=== PATIENT | female | born 1950 | race Caucasian/White ===

== ENCOUNTER 2018-02-06 11:12 | Emergency (ER) | payer OTHER ==
[~2018-02-06] VITALS: Ht 162.6 cm; Wt 91.0 kg
[2018-02-06 11:14] VITALS: TEMP 36.9; Ht 162.6 cm; Wt 91.0 kg
[2018-02-06] MEDS ORDERED: ONDANSETRON INJ 2 MG/ML 2 ML VIAL IV STA (11:31)
[2018-02-06] MEDS ORDERED: KETOROLAC TROMETHAMINE 30 MG/ML VIAL IV STA (11:31)
[2018-02-06 12:15] LABS: BASO % 0.5 %; BASO ABS # 0.03 K/uL (0-0.2); EOS % 3.9 %; EOS ABS # 0.25 K/uL (0-0.5); HEMATOCRIT 39.3 % (37-47); HEMOGLOBIN 13.3 g/dL (12.0-16.0); IG# 0.03 K/uL (0.00-0.02); LYMPH % 43.8 %; LYMPH ABS # 2.81 K/uL (1.2-3.4); MEAN CELL VOLUME 87.5 fL (80-100); MEAN CORPUSCULAR HEMOGLOBIN 29.6 pg (25-34); MEAN CORPUSCULAR HGB CONC 33.8 g/dl (32-36); MEAN PLATELET VOLUME 10.1 fL (7.4-10.4); MONO % 7.2 %; MONO ABS # 0.46 K/uL (0.11-0.59); NEUT % 44.1 %; NEUT ABS # 2.83 K/uL (1.4-6.5); PLATELET COUNT 268 K/uL (130-400); RED CELL DISTRIBUTION WIDTH CV 14.6 % (11.5-14.5); RED CELL DISTRIBUTION WIDTH SD 47.2 fL (36.4-46.3); WHITE BLOOD COUNT 6.41 K/uL (4.8-10.8)
--- NOTE | 2018-02-06 12:19 | EMERGENCY ROOM VISIT NOTE ---
ED Visit Note First contact with patient: 11:18 I have seen and examined this patient with Evonne Moe and generally agree with the treatment plan as discussed.
[2018-02-06] MEDS ORDERED: DVN/160 PO (12:23)
[2018-02-06] MEDS ORDERED: DICY10CA55 PO (12:23)
[2018-02-06] MEDS ORDERED: CITA20TA9 PO (12:23)
[2018-02-06] MEDS ORDERED: CHOL20007 PO (12:23)
[2018-02-06] MEDS ORDERED: PANT40TA PO (12:23)
[2018-02-06] MEDS ORDERED: VITA400C3 PO (12:23)
[2018-02-06] MEDS ORDERED: OMEG-76 PO (12:23)
[2018-02-06] MEDS ORDERED: METO50TA8 PO (12:23)
[2018-02-06] MEDS ORDERED: CETI10TA84 PO (12:23)
[2018-02-06] MEDS ORDERED: [UNRECOGNIZED DRUG - OTHER] PO (12:29)
[2018-02-06 12:33] LABS: ALBUMIN 3.9 gm/dl (3.4-5.0); CALCIUM 9.1 mg/dl (8.5-10.1); CREATININE 0.96 mg/dl (0.60-1.20)
[2018-02-06] MEDS ORDERED: POTA1080 PO (12:34)
[2018-02-06 12:36] LABS: TOTAL PROTEIN 7.9 gm/dl (6.4-8.2)
--- NOTE | 2018-02-06 13:18 | DIAGNOSTIC IMAGING REPORT ---
GALLBLADDER-ABD LIMITED HISTORY: 67 years-old Female Right upper quadrant pain acute right upper quadrant abdominal pain COMPARISON: None available TECHNIQUE: Multiple real-time sonographic images of the abdominal right upper quadrant were obtained assessing grayscale appearance and color flow FINDINGS: Pancreas appears unremarkable. There is increased echogenicity of the liver suggesting fatty infiltration. Tiny hypoechoic lesions about the liver are seen measuring up to 1.0 cm suggesting cysts. There is a focal 1.2 cm hyperechoic lesion of the liver near the falciform ligament seen on image 33 within the left hepatic lobe. No intrahepatic biliary ductal dilation. Gallbladder appears unremarkable without cholelithiasis, wall thickening or pericholecystic fluid. Common bile duct is normal, 4 mm. Hypoechoic lesions of the right kidney measuring up to 1.4 cm suggests cyst. No definite shadowing calculi of the right kidney identified. No tiffanie hydronephrosis. IMPRESSION: 1. Hepatic steatosis with hepatic cysts. 1.2 cm hyperechoic lesion of the left hepatic lobe is indeterminate, however may reflect a hepatic meningioma. 2. No cholelithiasis or sonographic evidence of acute cholecystitis. 3. No biliary ductal dilation. The above report was generated using voice recognition software. It may contain grammatical, syntax or spelling errors. Electronically signed by: Sanket Abdalla M.D. 02/06/2018 1:17 PM Dictated Date/Time: 02/06/2018 1:14 PM
[2018-02-06] MEDS ORDERED: CYCL10TA6 PO (13:40)
[2018-02-06] MEDS ORDERED: HYDR-5688 PO (13:40)
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
[2018-02-06 14:07] VITALS: BP 127/73; PULSE 64; O2SAT 97
== END 2018-02-06 14:07 | disposition home or self-care (01) ==
LOC: C.EDB 11:14
DX: R10.11 Right upper quadrant pain (principal); S39.012A Strain of muscle, fascia and tendon of lower back, initial encounter; X58.XXXA Exposure to other specified factors, initial encounter; R30.0 Dysuria; I10 Essential (primary) hypertension; Z87.442 Personal history of urinary calculi

== ENCOUNTER → 2018-04-19 | Day surgery (SDC) | payer OTHER ==
[2018-04-07 11:07] VITALS: BMI 34.0
--- NOTE | 2018-04-07 11:36 | PAT Medication Instructions ---
Service Date April 07, 2018. Current Home Medication List Cetirizine (Zyrtec), 10 MG PO QAM Cholecalciferol (Vitamin D3), 2,000 UNITS PO QAM Citalopram Hydrobromide (Celexa), 30 MG PO QAM Dicyclomine Hcl (Bentyl), 10 MG PO QID PRN for GI Upset Metoprolol Succ (Toprol Xl) (Toprol-Xl), 50 MG PO QPM Heidrick-3 Fatty Acids (Heidrick 3 500 500 mg), 500 MG PO BID Pantoprazole (Protonix), 40 MG PO QAM Valsartan (Diovan), 160 MG PO QAM Vitamin E (Alph-E), 400 UNITS PO QAM [Doterra], 1 TAB PO BID Medication Instructions For Your Scheduled Surgery - Hold the following medications starting today: Heidrick-3 Fatty Acids (Heidrick 3 500 500 mg), 500 MG PO BID Vitamin E (Alph-E), 400 UNITS PO QAM [Doterra], 1 TAB PO BID - Hold the following medications the morning of surgery: Cetirizine (Zyrtec), 10 MG PO QAM Cholecalciferol (Vitamin D3), 2,000 UNITS PO QAM Dicyclomine Hcl (Bentyl), 10 MG PO QID PRN for GI Upset Valsartan (Diovan), 160 MG PO QAM - Take the following medications the morning of surgery with a sip of water: Citalopram Hydrobromide (Celexa), 30 MG PO QAM Pantoprazole (Protonix), 40 MG PO QAM - Take the following medications as scheduled the night before surgery: Dicyclomine Hcl (Bentyl), 10 MG PO QID PRN for GI Upset (if needed) Metoprolol Succ (Toprol Xl) (Toprol-Xl), 50 MG PO QPM If you have any questions please call us at [phone] or [phone] or [phone]
[~2018-04-19] VITALS: Ht 162.6 cm; Wt 91.8 kg
[~2018-04-19] MED LIST: ACET-1311 PO; ATROPINE SULFATE 0.1 MG/ML 5ML SYR IV PRN; BUPIVACAINE 0.5 % 5 MG/1 ML PF 10ML VIAL ONE; CEFAZOLIN 2000MG IV PUSH 15 ML IV SCH; CEFAZOLIN SOD 1 GM VIAL ONE; CETI10TA84 PO; CHOL20007 PO; CISATRACURIUM BESYLATE IV SOLN 2 MG/ML 10 ML VIAL ONE; CITA20TA9 PO; DEXAMETHASONE SOD INJ 4 MG/ML VIAL ONE; DICY10CA55 PO; DOTERRA PO; DVN/160 PO; EpHEDrine SULFATE INJ 50 MG/ML AMP IV PRN; FENTANYL CITRATE INJ 50 MCG/1 ML 2 ML VIAL IV PRN; FENTANYL CITRATE INJ 50 MCG/1 ML 2 ML VIAL ONE; FLUMAZENIL 0.1 MG/1 ML 10 ML VIAL IV PRN; GLYCOPYRROLATE INJ 0.2 MG/ML VIAL ONE; HEPARIN SOD (PORCINE) 1000 UNIT/ML 10 ML VIAL ONE; LABETALOL HCL IV 5 MG/ML 20ML IV PRN; LACTATED RINGER'S 1000ML 1,000 ML IV SCH; LIDOCAINE HCL 2% 2 ML VIAL (20MG/ML) ONE; METO50TA8 PO; MIDAZOLAM HCL 1 MG/ML 2ML VIAL ONE; MoRPHine SULFATE 4 MG/ML 1 ML CARP\\VIAL IV PRN; NALOXONE HCL 0.4 MG/1 ML VIAL/CARP IV PRN; NEOSTIGMINE METHYLSULFATE 5 MG/5 ML SYR ONE; OMEG-76 PO; ONDANSETRON INJ 2 MG/ML 2 ML VIAL IV PRN; ONDANSETRON INJ 2 MG/ML 2 ML VIAL ONE; OXYCODONE/ACETAMINOPHEN 5-325 TAB PO PRN; PANT40TA PO; PROMETHAZINE HCL INJ 12.5 MG in SODIUM CHLORIDE 0.9% 50ML 50 ML IV PRN; PROPOFOL IV EMULSION 10 MG/ML 20 ML VIAL ONE; SCOPOLAMINE 1.5 MG TDSY TD ONE; SODIUM CHLORIDE 0.9% 1000ML 1,000 ML IV SCH; VITA400C28 PO
[2018-04-19 08:10] VITALS: BP 113/73; PULSE 69; TEMP 37.1; O2SAT 94; Ht 162.6 cm; Wt 91.8 kg
--- NOTE | 2018-04-19 10:58 | History & Physical Bridge Note ---
H&P Re-Evaluation Bridge Note: I have examined the patient, reviewed the History & Physical and in the interval since the performance of the History & Physical I have noted the following changes of clinical significance: No changes noted
--- NOTE | 2018-04-19 12:57 | [facility] Post Operative Brief Note ---
Immediate Operative Summary Operative Date April 19, 2018. Pre-Operative Diagnosis Dyskenesia of gallbladder Post-Operative Diagnosis Same Procedure(s) Performed Laparoscopic cholecystectomy Surgeon Dr Sagastume Well Service Floorperson Surgeon(s) none Estimated Blood Loss 5ml Findings Consistent with Post-Op Diagnosis Specimens A. Gallbladder Drains None Anesthesia Type General Complication(s) none
--- NOTE | 2018-04-19 12:59 | Discharge Instructions ---
Discharge Instructions Date of Service April 19, 2018. Admission Reason for Admission: Gallbladder Disease Discharge Discharge Diagnosis / Problem: Same Discharge Goals Goal(s): Decrease discomfort Activity Recommendations Activity Limitations: per Instructions/Follow-up section Lifting Limitations: no more than 10 pounds (for 6 weeks) Shower/Bathe: tomorrow (shower only) . Instructions / Follow-Up Instructions / Follow-Up Post-Surgical ~ Discharge Instructions Activity Recommendations: - lifting limitation: (10 pounds for 2 weeks), - exercise/sex/sports limit: (nonstrenuous for 2 weeks), - driving or machine use limit: (none for 1 week), - Shower/bathe limit: (may shower beginning tomorrow) Diet: - Resume previous diet SPECIAL CARE INSTRUCTIONS: - May shower in 24 hours. Let water run over area and pat dry. - Leave steri strips on for one week. - Call the surgeon's office with any questions or concerns - - (ex. temperature higher than 101 degrees F, excessive bleeding or pain). MEDICATIONS: - Resume previous medications unless instructed otherwise by your surgeon. - Ibuprofen 600 mg every 6 hours with food - Percocet 1 every 4 hours, as needed for pain FOLLOW UP VISIT: - If not already scheduled, please call the office to schedule a two week follow-up appointment. Office number Current Hospital Diet Patient's current hospital diet: Discharge Diet Recommended Diet: Regular Diet Procedures Procedures Performed: Laparoscopic cholecystectomy Pending Studies Studies pending at discharge: yes List of pending studies: Pathology Medical Emergencies . Who to Call and When: Medical Emergencies: If at any time you feel your situation is an emergency, please call 911 immediately. . Non-Emergent Contact Non-Emergency issues call your: Primary Care Provider, Surgeon Call Non-Emergent contact if: your pain is worsening, wound has increased redness, wound has increased pain . "Provider Documentation" section prepared by Gianfranco Sagastume. .
--- NOTE | 2018-04-19 13:44 | Anesthesiology Progress Note ---
Anesthesia Post Op Note Date & Time April 19, 2018 at 13:44 Vital Signs Pain Intensity: 5 Vital Signs Past 12 Hours Date Time Temp Pulse Resp B/P (MAP) Pulse Ox O2 Delivery O2 Flow Rate FiO2 04/19/18 13:35 36.8 97 Nasal Cannula 2 04/19/18 13:32 68 14 95 04/19/18 13:32 69 14 04/19/18 13:31 103/67 04/19/18 13:27 74 12 04/19/18 13:27 74 12 92 04/19/18 13:26 110/67 04/19/18 13:22 72 18 99 04/19/18 13:22 72 18 04/19/18 13:21 125/73 04/19/18 13:20 70 16 99 04/19/18 13:20 70 16 04/19/18 13:16 115/73 04/19/18 13:15 70 18 04/19/18 13:15 68 18 100 04/19/18 13:11 122/75 04/19/18 13:10 74 16 04/19/18 13:10 74 16 100 04/19/18 13:09 72 17 99 04/19/18 13:09 71 17 04/19/18 13:06 124/77 04/19/18 13:04 73 17 98 04/19/18 13:04 73 17 04/19/18 13:01 128/76 04/19/18 13:00 128/84 04/19/18 12:59 36.7 99 16 128/84 99 Oxymask 10 04/19/18 08:10 37.1 69 20 113/73 (86) 94 Room Air Notes Mental Status: alert / awake / arousable, participated in evaluation Pt Amnestic to Procedure: Yes Nausea / Vomiting: adequately controlled Pain: adequately controlled Airway Patency, RR, SpO2: stable & adequate BP & HR: stable & adequate Hydration State: stable & adequate Anesthetic Complications: no major complications apparent
[2018-04-19 13:50] VITALS: BP 114/73; PULSE 70; TEMP 36.6; O2SAT 96
[2018-04-19 14:17] VITALS: BP 109/65; PULSE 75; O2SAT 97
[2018-04-19 14:50] VITALS: BP 114/69; PULSE 78; O2SAT 95
--- NOTE | 2018-04-19 16:18 | OPERATIVE REPORT ---
DATE OF OPERATION: 04/19/2018 PREOPERATIVE DIAGNOSIS: Gallbladder dyskinesia. POSTOPERATIVE DIAGNOSIS: Gallbladder dyskinesia. PROCEDURE: Laparoscopic cholecystectomy. SURGEON: Gianfranco Sagastume MD FINDINGS: The gallbladder was covered in dense adhesions of the omentum. The duodenum was also adhesed up near the fundus of the gallbladder. Those were taken down bluntly. The cystic duct was not dilated and in fact was narrow. The gallbladder was not dilated. The liver was of normal size and contour. The visible bowel appeared normal. TECHNIQUE: The patient was given a general anesthetic and the area was prepped and draped in the usual sterile fashion. A transverse incision was made below the umbilicus, carried down through the subcutaneous tissue to the fascia which was grasped with 2 Nisha clamps and incised between. The peritoneum was identified, incised, and the introducer was placed bluntly. The abdomen was then insufflated to a pressure of 15 mmHg with carbon dioxide. The upper midline, midclavicular, and anterior axillary introducers were placed under direct vision through small skin incisions. The fundus of the gallbladder was visible and we were able to grasp that and place some traction. I then had to use a cautery blunt dissection in order to dissect the adhesions away from the fundus of the gallbladder. The adhesions on the lateral side were rather thickened. I did peel them down towards the common bile duct and eventually was able to establish a plane between some more flimsy adhesions of the gallbladder wall and peel those inferiorly. The duodenum was adhesed to the fundus area of the gallbladder. These adhesions were taken down using blunt dissection. There was one larger vein in the area that was bleeding. This was controlled with clips. Further dissection was then carried away such that it fell away without sharp or cautery dissection, I was able to continue that dissection of the more flimsy adhesions until the infundibulum could be identified. There were still further adhesions on the lateral aspect of the infundibulum that were taken down using cautery. Once I had the infundibulum and neck of the gallbladder identified, I was able to elevate that and opened the peritoneum and peel it down towards the common bile duct first laterally, then medially, and then over the anterior surface. The gallbladder was dissected away from the liver on the lateral and medial sides, allowing for better mobility and allowing me to identify the cystic duct. There were some adhesions and lymphatics that were peeled away and then I was able to establish a plane behind the cystic duct and confidently identify the cystic duct-gallbladder junction. The cystic artery was then identified posteriorly and it was isolated as well. Three clips were placed on the proximal cystic duct, one near the junction with the gallbladder, and it was divided. That allowed me to confirm the identity of the cystic artery. It was clamped twice proximally and once near the gallbladder and divided. The gallbladder was then peeled off the liver bed using electrocautery. It was placed into an Endobag and brought out through the upper midline incision with ease. That introducer was replaced and the liver edge was elevated. The gallbladder bed of the liver was inspected and there was no bleeding. The previously placed clips were intact. The subdiaphragmatic and subhepatic spaces were irrigated and irrigation removed. The gallbladder bed was again inspected and there was no bleeding. The gas was allowed to escape and the introducers were removed. The fascia of the umbilical and upper midline introducer sites were closed with interrupted 0 Vicryl and the skin of all the incisions was closed with 4-0 Monocryl in either an interrupted or running subcuticular fashion. The skin was cleansed and dried after it was anesthetized with 0.5% Marcaine. Steri-Strips were applied. The patient tolerated the surgical procedure without complication and was transferred to recovery. I attest to the content of the Intraoperative Record and any orders documented therein. Any exception s are noted below.
== END | disposition home or self-care (01) ==
LOC: C.ACU 07:50
PROVIDERS: ATTEND Surgery
DX: K81.1 Chronic cholecystitis (principal); K21.9 Gastro-esophageal reflux disease without esophagitis; K82.8 Other specified diseases of gallbladder; R10.11 Right upper quadrant pain; I10 Essential (primary) hypertension; G47.33 Obstructive sleep apnea (adult) (pediatric)